=== PATIENT | female | born 1995 | race American Indian/Alaskan Native ===

== ENCOUNTER 2017-07-06 21:47 | Emergency (ER) | payer SELFPAY ==
[2017-07-06 22:50] VITALS: BP 121/71
[2017-07-06] MEDS ORDERED: MOTRIN PO ONE (22:56)
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
== END 2017-07-07 02:23 | disposition left against medical advice (07) ==
LOC: ED 21:47
DX: S02.2XXA Fracture of nasal bones, initial encounter for closed fracture (principal); Z53.21 Procedure and treatment not carried out due to patient leaving prior to being seen by health care provider; X58.XXXA Exposure to other specified factors, initial encounter; Y93.89 Activity, other specified; Y99.8 Other external cause status; Y92.89 Other specified places as the place of occurrence of the external cause
CPT/HCPCS: 70486